=== PATIENT | male | born 1965 | race Caucasian/White ===

== ENCOUNTER → 2019-06-08 | Outpatient (CLI) | payer BC | LOC: COL.RAD 14:04 | DX: Z01.818 Encounter for other preprocedural examination (principal) ==

== ENCOUNTER 2023-11-21 05:16 | Day surgery (SDC) | payer OTHER ==
[~2023-11-21] VITALS: Ht 188 cm; Wt 111.4 kg
[~2023-11-21 05:16] MED LIST: Acetaminophen 500 MG TAB PO SCH; Celecoxib 200 MG CAP PO SCH; Gabapentin 100 MG CAP PO SCH; LR 1,000 ML IV SCH
[2023-11-21] MEDS ORDERED: JARDIANCE10 PO (06:01)
[2023-11-21] MEDS ORDERED: LEXAPRO 5MG5 MG PO (06:02)
[2023-11-21] MEDS ORDERED: TOPROL XL 50MG50 MG PO (06:03)
[2023-11-21] MEDS ORDERED: ENTRESTO 24 MG1 EACH PO (06:03)
[2023-11-21] MEDS ORDERED: XYZAL5 MG PO (06:04)
[2023-11-21 06:05] VITALS: BP 127/64; PULSE 75; TEMP 97.3
--- NOTE | 2023-11-21 06:26 | NUR ---
0526 - PATIENT ARRIVES AT THIS TIME AMBULATORY ACCOMPANIED BY . PATIENT IS ALERT AND ORIENTED AND ANSWERS QUESTIONS APPROPRIATELY. CONSENTS ARE SIGNED AFTER DISCUSSION ABOUT PROCEDURE AND PATIENT VERBALIZES UNDERSTANDING OF CARE AND PLAN OF CARE. AT BEDSIDE AT THIS TIME AND SHE ALSO VERBALIZES UNDERSTANDING. 0615 - PHYSICAL ASSESSMENT PERFORMED ON PATIENT. PATIENT VERBALIZES THAT HE HAD RECENTLY BEEN TOLD THAT HE HAD AN ABNORMAL HEART RYTHM WHICH HE HAD A CATARACT SURGERY CANCELLED BECAUSE OF, HE STATED THAT HE HAD FOLLOWED UP WITH HIS PROVIDER AND STARTED NEW MEDICATIONS THAT HAD THIS ABNORMAL HR DOWN TO 3% OF THE TIME. WHILE LISTENING TO HIS HEART, PATIENT IS NOTED TO HAVE REGULAR RYTHM WITH A DROPPED BEAT APPROXIMATELY 2-3 TIMES A MINUTE. VSS. WILL CONTINUE TO MONITOR. ANESTHESIA NOTIFIED AND EKG OBTAINED FOR BASELINE.
[2023-11-21] MEDS ORDERED: Midazolam 2 MG/2 ML VIAL ONE (07:04)
[2023-11-21] MEDS ORDERED: Rocuronium 50 MG/5 ML Multi-Dose VIAL ONE (07:04)
[2023-11-21] MEDS ORDERED: fentaNYL 50 MCG/ML 2 ML VIAL ONE (07:04)
[2023-11-21] MEDS ORDERED: Morphine 4 MG/ML VIAL IV PRN (07:15)
[2023-11-21] MEDS ORDERED: oxyCODONE 5 MG TAB PO PRN ×2 (07:15)
[2023-11-21] MEDS ORDERED: Naloxone 0.4 MG/ML VIAL IV PRN (07:15)
[2023-11-21] MEDS ORDERED: Ondansetron 4 MG/2 ML VIAL IV PRN (07:15)
--- NOTE | 2023-11-21 07:47 | NUR ---
0740 - IT WAS DETERMINED BY PATIENT, PHYSICIAN, AND PHOTOENGRAVING PRINTER TO POSTPONE SURGERY UNTIL MORE CARDIAC WORKUP COULD BE OBTAINED. IV REMOVED OUT OF PATIENT LEFT WRIST AND CATHETER WAS INTACT. CALL MADE TO GRIP WRAPPER TO NOTIFIY OF CANCELLATION. PATIENT GOT DRESSED INTO STREET [employer] INDEPENDENTLY AND WAS ESCORTED TO HOME BOUND VEHICLE. DR. DILLARD SAID HIS OFFICE WOULD FOLLOW UP WITH THE PATIENT AND THERE WOULD BE NO NEED TO SET UP FOLLOW UP APPOINTMENT. PATIENT VERBALIZED UNDERSTANDING OF CARE.
[2023-11-21] MEDS ORDERED: Sennosides/Docusate 8.6-50 MG TAB PO SCH (09:00)
[2023-11-21] MEDS ORDERED: LR 1,000 ML IV SCH (11:00)
[2023-11-21] MEDS ORDERED: Acetaminophen 500 MG TAB PO SCH (12:00)
[2023-11-21] MEDS ORDERED: Ketorolac 15 MG/ML VIAL IV SCH (15:00)
[2023-11-21] MEDS ORDERED: ceFAZolin 2 G in Water For Injection,Sterile 20 ML IV SCH (15:00)
== END 2023-11-21 07:50 | disposition home or self-care (01) ==
LOC: SDCO 05:16
DX: C61 Malignant neoplasm of prostate (principal); I27.20 Pulmonary hypertension, unspecified; Z53.8 Procedure and treatment not carried out for other reasons
CPT/HCPCS: J2250; J2704; J3010; J7120